=== PATIENT | female | born 1965 | race African-American/Black ===

== ENCOUNTER 2024-08-07 12:46 | Emergency (ER) | payer SELFPAY ==
--- NOTE | 2024-08-07 13:05 | EDPHYS ---
Physician Documentation [facility] Name: Kyra Davis Age: 59 yrs Sex: Female : 1965 Arrival Date: 08/07/2024 Time: 12:46 Bed IW3 Private MD: ED Physician Gigi Mathias HPI: 08/07 13:02 This 59 yrs old Black Female presents to ER via Unassigned with complaints of Bump on rn head. 13:02 Patient reports bumps to right posterior scalp that are growing and more painful. rn Patient reports bumps are tender. Patient also reports breakage of hair and losing her hair, some positives short. No fever or chills. No drainage. Onset: The symptoms/episode began/occurred 2 week(s) ago. Severity of symptoms: At their worst the symptoms were mild in the emergency department the symptoms are unchanged. The patient has not experienced similar symptoms in the past. Historical: - Allergies: 13:02 Codeine; cm10 - Home Meds: 13:04 amlodipine oral [Active]; cm10 - PMHx: 13:04 Hypertensive disorder; cm10 - Immunization history:: Adult Immunizations up to date. - Infectious Disease History:: Denies. - Social history:: Smoking status: Patient reports the use of cigarette tobacco products. - Family history:: not pertinent. - Hospitalizations: : No recent hospitalization is reported. ROS: 13:02 Constitutional: Negative for fever, chills, and weight loss, Skin: Positive for bumps rn and pain to right posterior scalp Exam: 13:02 Constitutional: This is a well developed, well nourished patient who is awake, alert, rn and in no acute distress. When being called to triage patient was outside smoking, ambulated to triage without assistance or difficulty Skin: Warm, dry, soft areas of swelling to scalp, superficial, mobile, no fluctuance noted. No overlying skin changes or erythema. Swelling noted right postauricular region. Neuro: Awake and alert, GCS 15, oriented to person, place, time, and situation. Cranial nerves II-XII grossly intact. Motor strength 5/5 in all extremities. Sensory grossly intact. Cerebellar exam normal. Normal gait. Vital Signs: 13:01 BP 138 / 93; Pulse 71; Resp 15; Temp 97.1; Pulse Ox 100% on R/A; Pain 6/10; cm10 13:01 Pain Scale: Adult cm10 MDM: 12:48 Medical Screening Exam initiated rn 13:02 Differential Diagnosis Fungal infection, lymphadenitis. Data reviewed: vital signs, rn nurses notes, and as a result, I will discharge patient. Counseling: I had a detailed discussion with the patient and/or guardian regarding the historical points, exam findings, and any diagnostic results supporting the discharge/admit diagnosis, the need for outpatient follow up, to return to the emergency department if symptoms worsen or persist or if there are any questions or concerns that arise at home. Special discussion: I discussed with the patient/guardian in detail that at this point there is no indication for admission to the hospital. It is understood, however, that if the symptoms persist or worsen the patient needs to return immediately for re-evaluation. Administered Medications: No medications were administered Disposition Summary: 08/07/24 13:05 Discharge Ordered Notes: Location: Home rn Problem: new rn Symptoms: are unchanged rn Condition: Stable rn Diagnosis - Acute lymphadenitis of face, head and neck rn Followup: rn - With: Private Physician - When: As needed - Reason: Recheck today's complaints, Re-evaluation by your physician Discharge Instructions: - Discharge Summary Sheet rn Forms: - Medication Reconciliation Form rn - Antibiotic furnace reliner - Prescription Opioid Use rn - Patient Portal Instructions rn - Leadership Thank You Letter rn Prescriptions: - ketoconazole 2 % Topical shampoo - apply 1 application TOPICAL route 2 times per week for 3 wks; 1 unit; Refills: rn 0, Product Selection Permitted - Clindamycin HCl 300 mg Oral Capsule - take 1 capsule ORAL route every 6 hours for 10 days; 40 capsule; Refills: 0, rn Product Selection Permitted Signatures: Gigi Mathias MD MD rn Martinez, Clarissa, RN RN 10
--- NOTE | 2024-08-07 13:05 | ER ---
Nurse's Notes [facility] Name: Kyra Davis Age: 59 yrs Sex: Female : 1965 Arrival Date: 08/07/2024 Time: 12:46 Bed IW3 Private MD: Diagnosis: Acute lymphadenitis of face, head and neck Presentation: 08/07 13:01 Chief complaint: Patient states: Bump on right side of head onset a few days ago. Pt cm10 states that the pain radiates down her arm. Coronavirus screen: Client denies travel out of the [place] in the last 14 days. Ebola Screen: Patient denies travel to an Ebola-affected area in the 21 days before illness onset. Initial Sepsis Screen: Does the patient meet any 2 criteria? No. Patient's initial sepsis screen is negative. Does the patient have a suspected source of infection? No. Patient's initial sepsis screen is negative. Risk Assessment: Do you want to hurt yourself or someone else? Patient reports no desire to harm self or others. Onset of symptoms was August 07, 2024. 13:01 Method Of Arrival: Ambulatory cm10 13:01 Acuity: CHANO 4 cm10 Triage Assessment: 13:03 General: Appears in no apparent distress. comfortable, Behavior is calm, cooperative. cm10 Pain: Complains of pain in right base of the skull. Neuro: No deficits noted. Level of Consciousness is awake, alert, obeys commands, Oriented to person, place, time, situation, Appropriate for age. Respiratory: No deficits noted. Airway is patent Respiratory effort is even, unlabored, Respiratory pattern is regular, symmetrical. Historical: - Allergies: 13:02 Codeine; cm10 - Home Meds: 13:04 amlodipine oral [Active]; cm10 - PMHx: 13:04 Hypertensive disorder; cm10 - Immunization history:: Adult Immunizations up to date. - Infectious Disease History:: Denies. - Social history:: Smoking status: Patient reports the use of cigarette tobacco products. - Family history:: not pertinent. - Hospitalizations: : No recent hospitalization is reported. Screenin:03 [facility] ED Fall Risk Assessment (Adult) History of falling in the last 3 months, cm10 including since admission No falls in past 3 months (0 pts) Confusion or Disorientation No (0 pts) Intoxicated or Sedated No (0 pts) Impaired Gait No (0 pts) Mobility Assist Device Used No (0 pt) Altered Elimination No (0 pt) Score/Fall Risk Level 0 - 2 = Low Risk Oriented to surroundings, Maintained a safe environment, Hourly rounding (assess needs \T\ fall precautionary measures) done. Abuse screen: Denies threats or abuse. Denies injuries from another. Nutritional screening: No deficits noted. Tuberculosis screening: No symptoms or risk factors identified. Vital Signs: 13:01 BP 138 / 93; Pulse 71; Resp 15; Temp 97.1; Pulse Ox 100% on R/A; Pain 6/10; cm10 13:01 Pain Scale: Adult cm10 ED Course: 12:48 Patient arrived in ED. mr 12:48 Gigi Mathias MD is Attending Physician. rn 13:02 Triage completed. cm10 13:03 Arm band placed on right wrist. Patient placed in an exam room, on a stretcher. cm10 13:03 Patient has correct armband on for positive identification. Provided Education on: ER cm10 process and procedures.. 13:04 No provider procedures requiring assistance completed. Patient did not have IV access cm10 during this emergency room visit. Administered Medications: No medications were administered Medication: 13:03 VIS not applicable for this client. cm10 Outcome: 13:05 Discharge ordered by . rn 13:10 Discharged to home ambulatory, cm10 13:10 Condition: good 13:10 Discharge instructions given to patient, Instructed on discharge instructions, follow up and referral plans. medication usage, Demonstrated understanding of instructions, follow-up care, medications, Prescriptions given X 2, 13:11 Patient left the ED. cm10 Signatures: Ene Billingsley, Reg Reg mr Gigi Mathias MD MD rn Martinez, Clarissa, RN RN cm10
[2024-08-07 13:34] VITALS: BP 138/93; TEMP 97.1; O2SAT 100
== END 2024-08-07 13:11 | disposition home or self-care (01) ==
LOC: ER 12:46
DX: L04.0 Acute lymphadenitis of face, head and neck (principal)

== ENCOUNTER 2024-08-18 13:53 | Emergency (ER) | payer SELFPAY ==
--- NOTE | 2024-08-18 15:58 | RAD REPORT ---
EXAM: CT brain without contrast HISTORY: right occiput/neck swelling COMPARISON: None TECHNIQUE: Multiple contiguous axial images were obtained and a CT of the brain without contrast. Sag ittal and coronal reformats were performed. FINDINGS: No evidence of hydrocephalus, intracranial hemorrhage, or extra-axial fluid collection. The brain is normal in morphology. The calvarium is intact. Sequelae of bilateral antrostomy and ethmoidectomies, with moderate mucosal thickening within the right frontal sinus.. Left maxillary sinus mucus retention cyst. Mastoid air cells are essentially clear. IMPRESSION: No evidence of acute intracranial abnormality. EXAM: CT of the cervical spine without contrast HISTORY: right occiput/neck swelling COMPARISON: None TECHNIQUE: Multiple contiguous axial images were obtained in a CT of the cervical spine without contr ast. Sagittal and coronal reformats were performed. FINDINGS: The vertebral bodies demonstrate normal height and alignment. No evidence of acute fracture or subluxation.. Degenerative changes at C5-6 and C6-7 with disc height loss, and mild to moderate bilateral neural foramina. No prevertebral soft tissue swelling is seen. The posterior facets are well aligned. Normal alignment of the skull base with the cervical spine is seen. The lung apices are unremarkable. IMPRESSION: No evidence of acute osseous abnormality of the cervical spine. Degenerative changes as above.
--- NOTE | 2024-08-18 16:40 | ER ---
Nurse's Notes [facility] Name: Kyra Davis Age: 59 yrs Sex: Female : 1965 Arrival Date: 08/18/2024 Time: 13:53 Bed IW2 Private MD: Diagnosis: Localized swelling, mass and lump, neck Presentation: 08/18 14:06 Chief complaint: Patient states: came in for lump to back of right side of neck - ld1 received antibiotics and shampoo. They don't seem to be working, and now I have an abrasion to the side of my face with headaches. Coronavirus screen: At this time, the client does not indicate any symptoms associated with coronavirus-19. Ebola Screen: No symptoms or risks identified at this time. Initial Sepsis Screen: Does the patient meet any 2 criteria? No. Patient's initial sepsis screen is negative. Does the patient have a suspected source of infection? No. Patient's initial sepsis screen is negative. Risk Assessment: Do you want to hurt yourself or someone else? Patient reports no desire to harm self or others. Onset of symptoms was August 18, 2024. 14:06 Method Of Arrival: Ambulatory ld1 14:06 Acuity: CHANO 3 ld1 Triage Assessment: 14:07 Headache History: Denies prior headaches. General: Appears in no apparent distress. ld1 comfortable, Behavior is calm, cooperative, appropriate for age. Pain: Complains of pain in face and scalp Pain does not radiate. Pain currently is 7 out of 10 on a pain scale. Quality of pain is described as throbbing, Pain began suddenly, Also complains of no other associated symptoms. EENT: No signs and/or symptoms were reported regarding the EENT system. Neuro: Level of Consciousness is awake, alert, obeys commands, Oriented to person, place, time, situation. Cardiovascular: Capillary refill < 3 seconds Patient's skin is warm and dry. Respiratory: Airway is patent Respiratory effort is even, unlabored. GI: Abdomen is round non-distended. Historical: - Allergies: 14:07 Codeine; ld1 - PMHx: 14:07 Hypertensive disorder; ld1 - Immunization history:: Adult Immunizations up to date. - Infectious Disease History:: Denies. - Social history:: Smoking status: Patient denies any tobacco usage or history of. - Family history:: not pertinent. - Hospitalizations: : No recent hospitalization is reported. Screenin:44 [facility] ED Fall Risk Assessment (Adult) History of falling in the last 3 months, ld1 including since admission No falls in past 3 months (0 pts) Confusion or Disorientation No (0 pts) Intoxicated or Sedated No (0 pts) Impaired Gait No (0 pts) Mobility Assist Device Used No (0 pt) Altered Elimination No (0 pt) Score/Fall Risk Level 0 - 2 = Low Risk Oriented to surroundings, Hourly rounding (assess needs \T\ fall precautionary measures) done. Abuse screen: Denies threats or abuse. Denies injuries from another. Nutritional screening: No deficits noted. Tuberculosis screening: No symptoms or risk factors identified. Assessment: 16:44 Reassessment: See triage assessmnet. Pain: Denies pain. ld1 Vital Signs: 14:06 BP 143 / 90; Pulse 69; Resp 18; Temp 98.5(TE); Pulse Ox 100% on R/A; Weight 77.11 kg; ld1 Height 5 ft. 8 in. ; Pain 7/10; 14:06 Body Mass Index 25.85 (77.11 kg, 172.72 cm) ld1 14:06 Pain Scale: Adult ld1 [place] Coma Score: 16:38 Eye Response: spontaneous(4). Motor Response: obeys commands(6). Verbal Response: rn oriented(5). Total: 15. ED Course: 14:04 Patient arrived in ED. al6 14:07 Triage completed. ld1 14:07 Arm band placed on right wrist. ld1 14:09 Gigi Mathias MD is Attending Physician. rn 14:24 CT Head C Spine In Process Unspecified. EDMS 16:44 Keisha Aragon, HANNA is Primary Nurse. ld1 16:44 No provider procedures requiring assistance completed. Patient did not have IV access ld1 during this emergency room visit. 16:45 Patient has correct armband on for positive identification. ld1 Administered Medications: No medications were administered Medication: 16:45 VIS not applicable for this client. ld1 Outcome: 16:39 Discharge ordered by . rn 16:44 Discharged to home ambulatory, ld1 16:44 Condition: stable 16:44 Discharge instructions given to patient, Instructed on discharge instructions, follow up and referral plans. medication usage, Demonstrated understanding of instructions, follow-up care, medications, Prescriptions given X 1, 16:45 Patient left the ED. ld1 Signatures: Dispatcher [employer] EDGigi Puga MD MD rn Keisha Aragon RN RN ld1 Joselyn [email or web address]
--- NOTE | 2024-08-18 16:40 | EDPHYS ---
Physician Documentation [facility] Name: Kyra Davis Age: 59 yrs Sex: Female : 1965 Arrival Date: 08/18/2024 Time: 13:53 Bed IW2 Private MD: ED Physician Gigi Mathias HPI: 08/18 14:14 This 59 yrs old Black Female presents to ER via Ambulatory with complaints of Headache, rn Neck Problem. 14:14 The patient complains of pain to the right base of the skull. rn 14:15 Onset: The symptoms/episode began/occurred 2 week(s) ago. Severity of symptoms: At its rn worst the pain was mild, in the emergency department the pain is unchanged. The symptoms are alleviated by nothing. the symptoms are aggravated by nothing. The patient has not experienced similar symptoms in the past. The patient has been recently seen at the [facility] Emergency Department. Patient reports swelling to the right occiput/neck that started weeks ago. Seen here and prescribed antibiotics and antifungal shampoo. States helped a little bit but has not gone away so came back. Reports mild discomfort but not really painful. No fever or chills.. Historical: - Allergies: 14:07 Codeine; ld1 - PMHx: 14:07 Hypertensive disorder; ld1 - Immunization history:: Adult Immunizations up to date. - Infectious Disease History:: Denies. - Social history:: Smoking status: Patient denies any tobacco usage or history of. - Family history:: not pertinent. - Hospitalizations: : No recent hospitalization is reported. ROS: 14:15 Constitutional: Negative for fever, chills, and weight loss, Neck: Negative for injury supervisor lead burning: Negative for chest pain, palpitations, and edema, Respiratory: Negative for shortness of breath, cough, wheezing, and pleuritic chest pain, Neuro: Negative for weakness, numbness, tingling, and seizure, Exam: 14:15 Constitutional: This is a well developed, well nourished patient who is awake, alert, rn and in no acute distress. Head/Face: Normocephalic, soft and boggy area that is approximately 4 to 5 cm at the right base of skull, is mobile and nontender. No erythema or warmth. Neck: Trachea midline. Supple, full range of motion without nuchal rigidity, or vertebral point tenderness. No Meningismus. Vital Signs: 14:06 BP 143 / 90; Pulse 69; Resp 18; Temp 98.5(TE); Pulse Ox 100% on R/A; Weight 77.11 kg; ld1 Height 5 ft. 8 in. ; Pain 7/10; 14:06 Body Mass Index 25.85 (77.11 kg, 172.72 cm) ld1 14:06 Pain Scale: Adult ld1 [place] Coma Score: 16:38 Eye Response: spontaneous(4). Motor Response: obeys commands(6). Verbal Response: rn oriented(5). Total: 15. MDM: 14:09 Medical Screening Exam initiated rn 16:38 Differential diagnosis: Malignancy, kerion, fungal infection, cellulitis, rn lymphadenitis. Data reviewed: vital signs, nurses notes, radiologic studies, CT scan, and as a result, I will discharge patient. Counseling: I had a detailed discussion with the patient and/or guardian regarding the historical points, exam findings, and any diagnostic results supporting the discharge/admit diagnosis, radiology results, the need for outpatient follow up, to return to the emergency department if symptoms worsen or persist or if there are any questions or concerns that arise at home. Special discussion: I discussed with the patient/guardian in detail that at this point there is no indication for admission to the hospital. It is understood, however, that if the symptoms persist or worsen the patient needs to return immediately for re-evaluation. Based on the history and exam findings, there is no indication for further emergent testing or inpatient evaluation. I discussed with the patient/guardian the need to see the ointment mill tender for further evaluation of the symptoms. 08/18 14:12 Order name: CT Head C Spine; Complete Time: 16:04 rn Administered Medications: No medications were administered Disposition Summary: 08/18/24 16:39 Discharge Ordered Notes: Location: Home rn Problem: an ongoing problem rn Symptoms: are unchanged rn Condition: Stable rn Diagnosis - Localized swelling, mass and lump, neck rn Followup: rn - With: Private Physician - When: As needed - Reason: Recheck today's complaints, Re-evaluation by your physician Discharge Instructions: - Discharge Summary Sheet rn Forms: - Medication Reconciliation Form rn - Antibiotic rn integrity - Prescription Opioid Use rn - Patient Portal Instructions rn - Leadership Thank You Letter rn Prescriptions: - Fluconazole 150 mg Oral tablet - take 1 tablet ORAL route once daily for 10 days; 10 tablet; Refills: 0, Product rn Selection Permitted Signatures: Dispatcher [employer] Gigi Vargas MD MD rn Keisha Aragon RN RN ld1 Corrections: (The following items were deleted from the chart) 14:10 14:10 Head Brain Wo [id number] ordered. EDRI EMMIE
[2024-08-18 16:53] VITALS: BP 143/90; TEMP 98.5; O2SAT 100
== END 2024-08-18 16:45 | disposition home or self-care (01) ==
LOC: ER 13:53
DX: R22.1 Localized swelling, mass and lump, neck (principal); R51.9 Headache, unspecified
CPT/HCPCS: 70450; 72125; 99283